=== PATIENT | female | born 1965 | race Hispanic/Latino ===

== ENCOUNTER 2018-11-12 10:22 | Outpatient (CLI) | payer BC ==
--- NOTE | 2018-11-15 10:52 | Mammography Report ---
DIGITAL SCREENING MAMMOGRAM WITH CAD, 11/12/2018 INDICATION: Routine screening mammography. TECHNIQUE: Digital bilateral 2D mammography was obtained in the craniocaudal and mediolateral obliq ue projections. This examination was interpreted with the benefit of Computer-Aided Detection analysi s. COMPARISON: 10/06/2011 FINDINGS: Breast Density: There are scattered areas of fibroglandular density. There is no evidence of dominant mass, suspicious calcifications or architectural distortion in eithe r breast. IMPRESSION: BI-RADS Category 1: Negative. No mammographic evidence of malignancy. Recommend routine screening m ammography in one year. A "normal" or negative report should not discourage follow up or biopsy of a clinically significant f inding. A written summary of these findings will be mailed to the patient. The patient will be entered into a mammography reporting system which will generate a reminder letter for the patient's next appointmen t at the appropriate interval. The [employer] recommends yearly mammograms starting at age 40 and continuing as l darleen as a woman is in good health. Breast MRI is recommended for women with an approximate 20-25% or greater lifetime risk of breast cancer, including women with a strong family history of breast or ova rhina cancer or who have been treated for Hodgkin's disease. Signer Name: Seamus Balderrama MD Signed: 11/15/2018 10:48 AM Workstation Name: [id number]
== END 2018-11-12 10:23 | disposition home or self-care (01) ==
LOC: SPVWC 10:22
PROVIDERS: ATTEND Family Medicine
DX: Z12.31 Encounter for screening mammogram for malignant neoplasm of breast (principal)
CPT/HCPCS: 77067

== ENCOUNTER 2019-10-19 10:01 | Outpatient (CLI) | payer BC ==
--- NOTE | 2019-10-20 12:58 | Nuclear Medicine Report ---
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 TECHNIQUE: 5.87 mCi of indium-111 Octreoscan was administered. 4 and 24-hour whole body imaging was p erformed. SPECT imaging was performed through the chest and abdomen. COMPARISON: None at this facility. FINDINGS: The 4 hour images demonstrate homogeneous distribution of the radiotracer throughout the blood pool, liver, spleen and kidneys. There is moderate GI activity identified on the 24-hour images. No focal area of abnormal uptake is confidently identified to suggest disease recurrence or metastasi s. IMPRESSION: Negative Octreoscan. Signer Name: Jose Echavarria Jr, MD Signed: 10/20/2019 12:54 PM Workstation Name: [id number]
== END 2019-10-19 10:02 | disposition home or self-care (01) ==
LOC: NM 10:01
PROVIDERS: ATTEND Internal Medicine Hematology & Oncology
DX: E34.0 Carcinoid syndrome (principal); R35.0 Frequency of micturition
CPT/HCPCS: 78804; A9572

== ENCOUNTER → 2019-10-20 | Outpatient (CLI) | payer BC ==
--- NOTE | 2019-10-28 09:56 | Nuclear Medicine Report ---
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 TECHNIQUE: 5.87 mCi of indium-111 Octreoscan was administered. 4 and 24-hour whole body imaging was p erformed. SPECT imaging was performed through the chest and abdomen. COMPARISON: None at this facility. FINDINGS: The 4 hour images demonstrate homogeneous distribution of the radiotracer throughout the blood pool, liver, spleen and kidneys. There is moderate GI activity identified on the 24-hour images. No focal area of abnormal uptake is confidently identified to suggest disease recurrence or metastasi s. IMPRESSION: Negative Octreoscan. Signer Name: Jose Echavarria Jr, MD Signed: 10/20/2019 12:54 PM Workstation Name: [id number]
== END | disposition home or self-care (01) ==
LOC: NM 09:46
PROVIDERS: ATTEND Internal Medicine Hematology & Oncology
DX: E34.0 Carcinoid syndrome (principal); R35.0 Frequency of micturition
CPT/HCPCS: 78803

== ENCOUNTER 2021-03-14 12:35 | Outpatient (CLI) | payer BC | END 2021-03-14 12:36 | disposition home or self-care (01) | LOC: PET 12:35 | PROVIDERS: ATTEND Internal Medicine Hematology & Oncology | DX: E34.0 Carcinoid syndrome (principal); E53.8 Deficiency of other specified B group vitamins; R51.9 Headache, unspecified; R79.89 Other specified abnormal findings of blood chemistry; R53.83 Other fatigue; R35.0 Frequency of micturition; D51.9 Vitamin B12 deficiency anemia, unspecified; L65.9 Nonscarring hair loss, unspecified; N28.9 Disorder of kidney and ureter, unspecified; Z79.899 Other long term (current) drug therapy | CPT/HCPCS: 82962 ==